=== PATIENT | male | born 1975 | race Two or more races ===

== ENCOUNTER 2018-10-23 15:29 | Inpatient (IN) | payer MEDICAID ==
[2018-10-23 15:37] VITALS: BMI 25.1
[2018-10-23 16:12] LABS: BASO % 0.5 % (0.0-2.0); EOS # 0.1 K/uL (0.0-0.7); EOS % 0.6 % (0.0-4.0); LYMPH # 2.9 K/uL (1.0-4.3); LYMPH % 32.5 % (20.0-40.0); MEAN CELL VOLUME 91.1 fL (80.0-94.0); MEAN CORPUSCULAR HEMOGLOBIN 28.9 pg (27.0-31.0); MEAN CORPUSCULAR HGB CONC 31.7 g/dL (33.0-37.0); MEAN PLATELET VOLUME 8.2 fL (7.2-11.7); MONO # 0.6 K/uL (0.0-0.8); MONO % 6.3 % (0.0-10.0); NEUT # 5.4 K/uL (1.8-7.0); NEUT % 60.1 % (50.0-75.0); NRBC % 0.1 % (0.0-2.0); RBC 4.52 Mil/uL (4.40-5.90); RED CELL DISTRIBUTION WIDTH 13.8 % (11.5-14.5); WHITE BLOOD COUNT 8.9 K/uL (4.8-10.8)
[2018-10-23 16:21] LABS: URINE BACTERIA RARE (<OCC); URINE BILIRUBIN NEGATIVE (NEGATIVE); URINE BLOOD NEGATIVE (NEGATIVE); URINE CLARITY Hazy (Clear); URINE COLOR Yellow (YELLOW); URINE GLUCOSE (UA) NORMAL (Normal); URINE LEUKOCYTE ESTERASE NEG Leu/uL (Negative); URINE PROTEIN 2+ mg/dL (NEGATIVE); URINE UROBILINOGEN NORMAL mg/dL (0.2-1.0)
[2018-10-23 16:27] LABS: ALB/GLOB RATIO 1.5 (1.0-2.1); ALBUMIN 4.2 g/dL (3.5-5.0); ALT/SGPT 25 U/L (21-72); AST/SGOT 30 U/L (17-59); BLOOD UREA NITROGEN 14 mg/dL (9-20); CALCIUM 9.3 mg/dl (8.6-10.4); GFR NON-AFRICAN AMERICAN > 60
[2018-10-23 16:47] LABS: BARBITURATES, UR NEGATIVE (NEGATIVE); BENZODIAZEPINES, UR NEGATIVE (NEGATIVE); PHENCYCLIDINE, UR NEGATIVE (NEGATIVE)
--- NOTE | 2018-10-23 16:51 | C.PDOC ---
History Of Present Illness 43 year old male brought into ED by family requesting heroin detox. He reports first using heroin when he was 18 years old, and currently uses 1-5 bags of heroin per day intranasally. Patient denies any other recreational drug use. Patient admits to smoking half a pack of cigarettes per day. He last used heroin 3 days ago. He also reports some abdominal pain, nausea, vomiting, and rhinorrhea. Patient admits to never being admitted to detox before. Time Seen by Provider: 10/23/18 15:35 Chief Complaint (Nursing): Substance Abuse History Per: Patient, Family History/Exam Limitations: no limitations Onset/Duration Of Symptoms: Days Current Symptoms Are (Timing): Still Present Modifying Factor(s): Narcotics Severity: Moderate Additional History Per: Family Past Medical History Reviewed: Historical Data, Nursing Documentation, Vital Signs Vital Signs: Last Vital Signs Temp 99.4 F 10/23/18 15:37 Pulse 77 10/23/18 15:37 Resp 18 10/23/18 15:37 BP 111/72 10/23/18 15:37 Pulse Ox 98 10/23/18 15:37 - Medical History PMH: Hypercholesterolemia Surgical History: No Surg Hx Family History: States: No Known Family Hx - Social History Hx Alcohol Use: Yes Hx Substance Use: Yes - Immunization History Hx Tetanus Toxoid Vaccination: No Hx Influenza Vaccination: No Hx Pneumococcal Vaccination: No Review Of Systems Constitutional: Negative for: Fever, Chills, Weakness Eyes: Negative for: Redness ENT: Positive for: Nose Congestion. Negative for: Mouth Swelling Cardiovascular: Negative for: Chest Pain, Palpitations Respiratory: Negative for: Cough, Shortness of Breath Gastrointestinal: Positive for: Nausea, Vomiting, Abdominal Pain. Negative for: Diarrhea Genitourinary: Negative for: Dysuria, Hematuria Musculoskeletal: Negative for: Back Pain Neurological: Negative for: Weakness, Numbness, Dizziness Physical Exam - Physical Exam Appears: Well, Non-toxic, No Acute Distress, Other (flat affect ) Skin: Other (scattered excorations on arms ) Head: Atraumatic, Normacephalic Eye(s): bilateral: Normal Inspection, PERRL, EOMI Oral Mucosa: Moist Neck: Supple Cardiovascular: Rhythm Regular Respiratory: Normal Breath Sounds, No Accessory Muscle Use, No Rales, No Rhonchi, No Wheezing Gastrointestinal/Abdominal: Normal Exam, Bowel Sounds, Soft, No Tenderness Extremity: No Deformity, No Swelling Pulses: Left Radial: Normal, Right Radial: Normal Neurological/Psych: Oriented x3 ED Course And Treatment - Laboratory Results Result Diagrams: 10/23/18 16:05 10/23/18 16:05 Lab Results: Total Bilirubin 1.1 mg/dL (0.2-1.3) 10/23/18 16:05 AST 30 U/L (17-59) 10/23/18 16:05 ALT 25 U/L (21-72) 10/23/18 16:05 Alkaline Phosphatase 52 U/L (38-126) 10/23/18 16:05 Total Protein 6.9 g/dL (6.3-8.3) 10/23/18 16:05 Albumin 4.2 g/dL (3.5-5.0) 10/23/18 16:05 Globulin 2.7 gm/dL (2.2-3.9) 10/23/18 16:05 Albumin/Globulin Ratio 1.5 (1.0-2.1) 10/23/18 16:05 Urine Color Yellow (YELLOW) 10/23/18 16:05 Urine Clarity Hazy (Clear) 10/23/18 16:05 Urine pH 8.0 (5.0-8.0) 10/23/18 16:05 Ur Specific [place] 1.013 (1.003-1.030) 10/23/18 16:05 Urine Protein 2+ mg/dL (NEGATIVE) H 10/23/18 16:05 Urine Glucose (UA) Normal mg/dL (Normal) 10/23/18 16:05 Urine Ketones Negative mg/dL (NEGATIVE) 10/23/18 16:05 Urine Blood Negative (NEGATIVE) 10/23/18 16:05 Urine Nitrate Negative (NEGATIVE) 10/23/18 16:05 Urine Bilirubin Negative (NEGATIVE) 10/23/18 16:05 Urine Urobilinogen Normal mg/dL (0.2-1.0) 10/23/18 16:05 Ur Leukocyte Esterase Neg Marci/uL (Negative) 10/23/18 16:05 Urine WBC (Auto) < 1 /hpf (0-5) 10/23/18 16:05 Urine RBC (Auto) 1 /hpf (0-3) 10/23/18 16:05 Urine Bacteria Rare (<OCC) 10/23/18 16:05 O2 Sat by Pulse Oximetry: 98 (RA) Pulse Ox Interpretation: Normal Progress Note: Blood work, UA, UDS ordered and reviewed. 5:10PM- Patient medically cleared. Pending crisis. Disposition - Disposition Disposition Time: 19:00 Condition: STABLE Forms: [facility] (Italian) - Clinical Impression Clinical Impression: Heroin dependence - Scribe Statement The provider has reviewed the documentation as recorded by the Scribe (Judy Garza) Provider Attestation: All medical record entries made by the Scribe were at my direction and personally dictated by me. I have reviewed the chart and agree that the record accurately reflects my personal performance of the history, physical exam, medical decision making, and the department course for this patient. I have also personally directed, reviewed, and agree with the discharge instructions and disposition. Physician Patient Turnover Patient Signed Over To: Merline Cano Handoff Comments: pending crisis
[2018-10-23 17:25] LABS: OPIATES, UR NEGATIVE (NEGATIVE)
--- NOTE | 2018-10-23 22:01 | PCM.BM ---
Treatment Plan Problems - Problems identified on initial assessmt Denial Date Initiated: 10/23/18 Time Initiated: 21:58 Assessment reference: NA Status: Active Low Motivation to Change Date Initiated: 10/23/18 Time Initiated: 21:59 Assessment reference: NA Status: Active Defensive Coping Date Initiated: 10/23/18 Time Initiated: 21:59 Assessment reference: NA Status: Active Treatment assets and liabiliti Patient Assests: cooperative, ADL independent, negotiates basic needs Patient Liabilities: substance abuse (Heroin) - Milieu Protocol Maintain good personal hygiene: daily Encourage regular showers, daily Remind patient to perform daily oral care, daily Assist patient to perform ADL's Conduct patient checks and document Observation sheet: Q15 minutes Maintain personal safety: every shift Educate patient to report safety concerns to staff, every shift Monitor environment for contraband/sharps Medication safety: Monitor for expected outcome, potential side effects: every shift, Assess barriers to learning: every shift, Assess readiness for medication education: every shift
[2018-10-24 06:54] VITALS: O2SAT 99
--- NOTE | 2018-10-24 09:35 | PCM.PSYCH ---
Initial Psychiatric Evaluation - Initial Psychiatric Evaluation Type of Admission: Voluntary Legal Status: Capacity Current Medications: Active Medications Generic Name Dose Route Start Last Admin Trade Name Freq PRN Reason Stop Dose Admin Hydroxyzine HCl 25 mg 10/23/18 21:20 Atarax PO Q6 PRN Anxiety Influenza Virus Vaccine 60 mcg 10/25/18 10:00 Flucelvax Quad 2353-0398 Syr IM 10/25/18 10:01 .ONCE ONE Pneumococcal Polyvalent Vaccine 0.5 ml 10/25/18 10:00 Pneumovax 23 Vaccine IM 10/25/18 10:01 .ONCE ONE Trazodone HCl 50 mg 10/23/18 21:20 Desyrel PO HS PRN Insomnia Past Psychiatric History - Past Psychiatric History Pertinent Medical Hx (Current Medical&Sleep Prob, Allergies): Allergies Allergy/AdvReac Type Severity Reaction Status Date / Time No Known Allergies Allergy Verified 10/23/18 15:36 No Known Home Med 10/23/18
--- NOTE | 2018-10-24 10:11 | PCM.PYCHDC ---
Mental Status Examination - Mental Status Examination Orientation: Person Discharge Summary - Discharge Note Laboratory Data: Abnormal Lab Results 10/23/18 10/23/18 10/23/18 16:05 16:05 16:05 WBC 8.9 RBC 4.52 Hgb 13.0 Hct 41.1 MCV 91.1 MCH 28.9 MCHC 31.7 L RDW 13.8 Plt Count 271 MPV 8.2 Neut % (Auto) 60.1 Lymph % (Auto) 32.5 Casey % (Auto) 6.3 Eos % (Auto) 0.6 Baso % (Auto) 0.5 Neut # (Auto) 5.4 Lymph # (Auto) 2.9 Casey # (Auto) 0.6 Eos # (Auto) 0.1 Baso # (Auto) 0.0 Sodium 140 Potassium 3.9 Chloride 106 Carbon Dioxide 27 Anion Gap 10 BUN 14 Creatinine 1.3 Est GFR ( Amer) > 60 Est GFR (Non-Af Amer) > 60 Random Glucose 109 Calcium 9.3 Total Bilirubin 1.1 AST 30 ALT 25 Alkaline Phosphatase 52 Total Protein 6.9 Albumin 4.2 Globulin 2.7 Albumin/Globulin Ratio 1.5 Urine Color Yellow Urine Clarity Hazy Urine pH 8.0 Ur Specific [place] 1.013 Urine Protein 2+ H Urine Glucose (UA) Normal Urine Ketones Negative Urine Blood Negative Urine Nitrate Negative Urine Bilirubin Negative Urine Urobilinogen Normal Ur Leukocyte Esterase Neg Urine WBC (Auto) < 1 Urine RBC (Auto) 1 Urine Bacteria Rare Urine Opiates Screen Urine Methadone Screen Ur Barbiturates Screen Ur Phencyclidine Scrn Ur Amphetamines Screen U Benzodiazepines Scrn U Oth Cocaine Metabols U Cannabinoids Screen Alcohol, Quantitative < 10 10/23/18 16:05 WBC RBC Hgb Hct MCV MCH MCHC RDW Plt Count MPV Neut % (Auto) Lymph % (Auto) Casey % (Auto) Eos % (Auto) Baso % (Auto) Neut # (Auto) Lymph # (Auto) Casey # (Auto) Eos # (Auto) Baso # (Auto) Sodium Potassium Chloride Carbon Dioxide Anion Gap BUN Creatinine Est GFR ( Amer) Est GFR (Non-Af Amer) Random Glucose Calcium Total Bilirubin AST ALT Alkaline Phosphatase Total Protein Albumin Globulin Albumin/Globulin Ratio Urine Color Urine Clarity Urine pH Ur Specific [place] Urine Protein Urine Glucose (UA) Urine Ketones Urine Blood Urine Nitrate Urine Bilirubin Urine Urobilinogen Ur Leukocyte Esterase Urine WBC (Auto) Urine RBC (Auto) Urine Bacteria Urine Opiates Screen Negative Urine Methadone Screen Negative Ur Barbiturates Screen Negative Ur Phencyclidine Scrn Negative Ur Amphetamines Screen Negative U Benzodiazepines Scrn Negative U Oth Cocaine Metabols Negative U Cannabinoids Screen Negative Alcohol, Quantitative Consultations:: List each consultation separately and include: 1. Reason for request. 2. Findings. 3. Follow-up Summary of Hospital Course include:: 1. Description of specific treatment plan utilized for patients during their course of treatmen. 2. Summarize the time- course for resolution of acute symptoms and/or regressed behaviors. 3. Describe issues identified and worked on during hospitalization. 4. Describe medication utilized. 5. Describe medical problems identified and treated. 6. 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 And smoke. - Final Diagnosis (DSM 5) Condition upon Discharge: FAIR Disposition: HOME/ ROUTINE
[2018-10-24 10:57] VITALS: BP 122/82; PULSE 64; RESP 18; TEMP 97.8
[2018-10-25] MEDS ORDERED: Pneumococcal 23-Valent Vaccine IM ONE (10:00)
[2018-10-25] MEDS ORDERED: Influenza Vaccine 60 mcg/0.5 mL SYR (4YR UP) IM ONE (10:00)
== END 2018-10-24 10:35 | disposition home or self-care (01) | DRG 745 ==
LOC: C.ER 15:29 → C.7D 20:03
PROVIDERS: ADMIT Psychiatry & Neurology Psychiatry; ATTEND Psychiatry & Neurology Psychiatry
DX: F11.20 Opioid dependence, uncomplicated (principal); F17.210 Nicotine dependence, cigarettes, uncomplicated; E78.00 Pure hypercholesterolemia, unspecified